=== PATIENT | male | born 1940 | race Caucasian/White ===

== ENCOUNTER 2017-10-31 14:00 | Inpatient (IN) | payer OTHER, MEDICARE, MEDICAID ==
[~2017-10-31] VITALS: Ht 182.9 cm; Wt 106.4 kg
[~2017-10-31 14:00] MED LIST: ALBU18HF2 INH; AMIO200T57 PO; AMMO1SOL2 TOP; AMOX500C2 PO; ASPI-1265 PO; ATOR40TA PO; CARB15DR2 EACHEYE; CARV-50 PO; CEPH-571 PO; CHOL400T32 PO; DEXT15DR7 EACHEYE; DOCU-148 PO; DORZ10DR7 EACHEYE; FURO-150 PO; HYDR-565 PO; HYDR28CR14 TOP; KEN0.1O TP; LISI10TA4 PO; METH1TAB32 PO; MINE120C3 TOP; MORP100C17 PO; MORP60CA18 PO; NITR1PAT25 TD; OMEG-166 PO; OXYB15TA PO; PANT-47 PO; POLY17PO10 PO; RIVA20TA PO; SENN-161 PO; SIME80TA5 PO; VITC500T PO; XAL0.005OS EACHEYE; ZOLP10TA5 PO
[2017-10-31 15:14] LABS: INR 1.4 INR; PARTIAL THROMBOPLASTIN TIME 32 SECONDS (22-32); PROTHROMBIN TIME 14.8 SECONDS (9.0-12.0)
[2017-10-31 15:17] LABS: BASOPHILS % (AUTO) 0.4 % (0-1); EOSINOPHILS # (AUTO) 0.4 X10'3 (0-0.9); EOSINOPHILS % (AUTO) 5.5 % (0-6); HEMATOCRIT 29.7 % (42.0-52.0); HEMOGLOBIN 9.1 g/dl (14.0-17.9); LYMPHOCYTES # (AUTO) 1.3 X10'3 (1.1-4.8); MEAN CORPUSCULAR HEMOGLOBIN 21.2 PG (27.0-31.0); MEAN CORPUSCULAR HGB CONC 30.8 % (33.0-36.5); MEAN CORPUSCULAR VOLUME 69.1 FL (78-98); MEAN PLATELET VOLUME 8.2 FL (7.4-10.4); MONOCYTES # (AUTO) 0.8 X10'3 (0-0.9); MONOCYTES % (AUTO) 10.3 % (2-12); NEUTROPHILS # (AUTO) 5.3 X10'3 (1.8-7.7); NEUTROPHILS % (AUTO) 67.8 % (42-75); PLATELET COUNT 243 X10'3 (140-440); RED CELL DISTRIBUTION WIDTH 20.3 % (11.5-14.5); WHITE BLOOD COUNT 7.9 X10'3 (4.5-11.0)
[2017-10-31 15:23] LABS: ALANINE AMINOTRANSFERASE 45 U/L (12-78); ALBUMIN 2.7 G/DL (3.4-5.0); ALBUMIN/GLOBULIN RATIO 0.6 (1.1-1.5); ALKALINE PHOSPHATASE 86 IU/L (46-116); ANION GAP 5 (8-16); ASPARTATE AMINO TRANSFERASE 41 U/L (10-37); BILIRUBIN,TOTAL 0.9 MG/DL (0.1-1.0); BLOOD UREA NITROGEN 31 MG/DL (7-18); BUN/CREATININE RATIO 23.5 (5.4-32.0); CALCIUM 8.6 MG/DL (8.5-10.1); CHLORIDE 100 MMOL/L (99-107); CREATININE 1.32 MG/DL (0.60-1.10); GLUCOSE 95 MG/DL (70-104); POTASSIUM 4.1 MMOL/L (3.5-5.1); SODIUM 136 MMOL/L (135-145); TOTAL CARBON DIOXIDE 31.1 MMOL/L (24-32); TOTAL PROTEIN 7.6 G/DL (6.4-8.2); eGFR 53 ML/MIN
[2017-10-31 15:33] LABS: ACANTHOCYTES 2+; ANISOCYTOSIS 2+; HYPOCHROMASIA 2+; MICROCYTOSIS 2+; PLATELET ESTIMATE NORMAL; POLYCHROMASIA 2+
[2017-10-31] MEDS ORDERED: furosemide 10 MG/1 ML 10ml inj IV ONE (16:20)
[2017-10-31] MEDS ORDERED: non-formulary drug (Zolpidem Tartrate* (Ambien*) 1 TAB) PO PRN (17:20)
[2017-10-31] MEDS ORDERED: MINERAL OIL/PETROLATUM,WHITE CREAM 107 GM TUBE TP PRN (17:20)
[2017-10-31] MEDS ORDERED: GLYCERIN EACHEYE PRN (17:20)
[2017-10-31] MEDS ORDERED: simethicone 80mg chew tab PO PRN (17:20)
[2017-10-31] MEDS ORDERED: HYDROcodone/acetaminophen 10/325mg tab PO PRN (17:20)
[2017-10-31] MEDS ORDERED: non-formulary drug (Albuterol Sulfate (Ventolin Hfa) 2 PUFFS) INH PRN (17:20)
[2017-10-31] MEDS ORDERED: docusate sod 100mg capsule PO PRN (17:20)
[2017-10-31] MEDS ORDERED: CARBOXYMETHYLCELLULOS EACHEYE PRN (17:20)
[2017-10-31] MEDS ORDERED: ondansetron/PF 4mg/2ml inj IV PRN (17:35)
[2017-10-31] MEDS ORDERED: mag hydrox/Alum hydrox/simeth 30ml oral suspension PO PRN (17:35)
[2017-10-31] MEDS ORDERED: acetaminophen 325mg tablet PO PRN (17:35)
[2017-10-31] MEDS ORDERED: potassium Cl 40MEQ/NS 500ml 500 ML IV PRN ×2 (17:35)
[2017-10-31] MEDS ORDERED: magnesium hydroxide 30ml (MOM) UD suspension PO PRN (17:35)
[2017-10-31] MEDS ORDERED: HYDROcodone/acetaminophen 5mg/325mg tablet PO PRN (17:35)
[2017-10-31] MEDS ORDERED: polyvinyl alcohol ophthalmic drops 15ml bottle EACHEYE PRN (18:00)
[2017-10-31] MEDS ORDERED: albuterol 2.5 MG/3 ML nebule NEB PRN (18:00)
[2017-10-31 18:11] LABS: ALANINE AMINOTRANSFERASE 50 U/L (12-78); ALBUMIN 2.7 G/DL (3.4-5.0); ALBUMIN/GLOBULIN RATIO 0.6 (1.1-1.5); ALKALINE PHOSPHATASE 86 IU/L (46-116); ASPARTATE AMINO TRANSFERASE 37 U/L (10-37); BILIRUBIN,DIRECT 0.3 MG/DL (0-0.3); BILIRUBIN,TOTAL 0.9 MG/DL (0.1-1.0); TOTAL PROTEIN 7.5 G/DL (6.4-8.2)
[2017-10-31] MEDS ORDERED: CARV3.12 PO (18:14)
[2017-10-31 19:55] VITALS: BP 154/82
[2017-10-31] MEDS ORDERED: furosemide 10 MG/1 ML 10ml inj IV SCH (20:00)
[2017-10-31] MEDS ORDERED: AMMONIUM LACTATE TP SCH (20:00)
[2017-10-31] MEDS ORDERED: pantoprazole 40mg Tablet.DR PO SCH (20:00)
[2017-10-31] MEDS ORDERED: carVEDilol 3.125mg tablet PO SCH (20:00)
[2017-10-31] MEDS ORDERED: furosemide 20MG tablet PO SCH (20:00)
[2017-10-31] MEDS ORDERED: methenamine hippurate 1gm tablet PO SCH (20:00)
[2017-10-31] MEDS ORDERED: dorzolamide 2% ophthalmic drops 10ml EACHEYE SCH (20:00)
[2017-10-31] MEDS ORDERED: hydrocortisone 1% cream 28gm TP SCH (20:00)
[2017-10-31] MEDS ORDERED: AMMONIUM LACTATE TOP SCH (20:00)
[2017-10-31] MEDS ORDERED: oxybutynin 5mg tablet PO SCH (20:00)
[2017-10-31] MEDS ORDERED: latanoprost 0.005% 2.5ml ophthalmic drops EACHEYE SCH (21:00)
[2017-10-31] MEDS ORDERED: OMEGA-3/DHA/EPA/FISH OIL 1 EACH CAPSULE.DR PO SCH (21:00)
[2017-10-31 21:15] VITALS: BP 139/71
[2017-10-31] MEDS ORDERED: diltiazem 5mg/ml 5ml inj. IV ONE ×2 (23:15→23:16)
[2017-10-31 23:35] LABS: ABG BASE EXCESS -0.6 mmol/L (-2.0-3.0); ABG HCO3 25.2 mmol/L (22.0-26.0); ABG PCO2 (T) 49.5 mmHg (35.0-48.0); ABG PO2 (T) 74.3 mmHg (83-108); FLOW 4 L/min; FMetHb 0.2 % (0.3-1.12); FO2Hb 90.8 % (94-100); PATIENT TEMPERATURE 38.5; TOTAL HEMOGLOBIN 10.2 G/dl (14.0-18.0)
[2017-10-31 23:46] LABS: BASOPHILS % (AUTO) 0 % (0-1); EOSINOPHILS % (AUTO) 0.5 % (0-6); HEMATOCRIT 30.6 % (42.0-52.0); HEMOGLOBIN 9.4 g/dl (14.0-17.9); LYMPHOCYTES # (AUTO) 0.2 X10'3 (1.1-4.8); MEAN CORPUSCULAR HEMOGLOBIN 21.1 PG (27.0-31.0); MEAN CORPUSCULAR HGB CONC 30.7 % (33.0-36.5); MEAN CORPUSCULAR VOLUME 68.6 FL (78-98); MEAN PLATELET VOLUME 7.3 FL (7.4-10.4); MONOCYTES % (AUTO) 0.1 % (2-12); NEUTROPHILS # (AUTO) 8.5 X10'3 (1.8-7.7); NEUTROPHILS % (AUTO) 97.4 % (42-75); PLATELET COUNT 258 X10'3 (140-440); RED BLOOD COUNT 4.47 X10'6 (4.70-6.10); RED CELL DISTRIBUTION WIDTH 20.3 % (11.5-14.5); WHITE BLOOD COUNT 8.8 X10'3 (4.5-11.0)
[2017-10-31 23:59] LABS: ALANINE AMINOTRANSFERASE 46 U/L (12-78); ALBUMIN 2.6 G/DL (3.4-5.0); ALBUMIN/GLOBULIN RATIO 0.6 (1.1-1.5); ALKALINE PHOSPHATASE 117 IU/L (46-116); ANION GAP 8 (8-16); ASPARTATE AMINO TRANSFERASE 44 U/L (10-37); BILIRUBIN,TOTAL 1.4 MG/DL (0.1-1.0); BLOOD UREA NITROGEN 34 MG/DL (7-18); BUN/CREATININE RATIO 20.1 (5.4-32.0); CALCIUM 8.3 MG/DL (8.5-10.1); CHLORIDE 101 MMOL/L (99-107); CREATININE 1.69 MG/DL (0.60-1.10); GLUCOSE 63 MG/DL (70-104); POTASSIUM 3.7 MMOL/L (3.5-5.1); SODIUM 138 MMOL/L (135-145); TOTAL CARBON DIOXIDE 28.8 MMOL/L (24-32); TOTAL PROTEIN 7.3 G/DL (6.4-8.2); eGFR 40 ML/MIN
[2017-11-01] MEDS ORDERED: piperacillin-tazo 2.25gm/50ml 50 ML IV SCH
[2017-11-01] MEDS ORDERED: morphine ER 30mg tablet PO SCH
[2017-11-01 00:10] VITALS: BP 114/94
[2017-11-01 00:11] LABS: CLARITY,URINE Cloudy (Clear); COLOR,URINE Yellow (Yellow); GLUCOSE, URINE Negative (Neg); KETONES,URINE Negative (Neg); LEUKOCYTE ESTERASE ,URINE Moderate (Neg); NITRITES, URINE Negative (Neg); OCCULT BLOOD,URINE Large (Neg); PROTEIN,URINE 100 mg/dl (Neg)
[2017-11-01] MEDS ORDERED: piperacillin-tazo 2.25gm/50ml 50 ML IV ONE (00:23)
[2017-11-01 00:46] LABS: UA COLLECTION TYPE FOLEY CATH
[2017-11-01] MEDS ORDERED: vancomycin/NS 1 GM ADD-VANTAGE 250 ML IV SCH (01:00)
[2017-11-01 01:14] LABS: RBC,URINE 50-100 /HPF (0-2)
[2017-11-01 01:15] LABS: BACTERIA,URINE 2+ /HPF (Neg)
[2017-11-01 01:16] LABS: MUCUS STRANDS NONE SEEN /LPF (Neg); SQUAMOUS EPITHELIAL CELL,UR FEW /LPF (FEW)
[2017-11-01] MEDS ORDERED: acetaminophen 120MG suppository, rectal RC PRN (01:50)
[2017-11-01] MEDS ORDERED: acetaminophen 650mg rectal suppository RC PRN (02:20)
[2017-11-01 03:00] VITALS: BP 80/44
[2017-11-01 03:05] VITALS: BP 72/40
[2017-11-01 03:10] VITALS: BP 66/40
[2017-11-01 03:36] LABS: BASOPHILS % (AUTO) 0 % (0-1); EOSINOPHILS % (AUTO) 0.1 % (0-6); HEMATOCRIT 30.8 % (42.0-52.0); HEMOGLOBIN 9.4 g/dl (14.0-17.9); LYMPHOCYTES # (AUTO) 0.6 X10'3 (1.1-4.8); LYMPHOCYTES % (AUTO) 2.1 % (21-51); MEAN CORPUSCULAR HEMOGLOBIN 21.1 PG (27.0-31.0); MEAN CORPUSCULAR HGB CONC 30.6 % (33.0-36.5); MEAN CORPUSCULAR VOLUME 69.1 FL (78-98); MEAN PLATELET VOLUME 8.3 FL (7.4-10.4); MONOCYTES # (AUTO) 0.2 X10'3 (0-0.9); MONOCYTES % (AUTO) 0.6 % (2-12); NEUTROPHILS # (AUTO) 28.3 X10'3 (1.8-7.7); NEUTROPHILS % (AUTO) 97.2 % (42-75); PLATELET COUNT 227 X10'3 (140-440); RED BLOOD COUNT 4.45 X10'6 (4.70-6.10); RED CELL DISTRIBUTION WIDTH 19.6 % (11.5-14.5)
[2017-11-01 03:49] LABS: WHITE BLOOD COUNT 29.1 X10'3 (4.5-11.0)
[2017-11-01 03:54] LABS: ALANINE AMINOTRANSFERASE 106 U/L (12-78); ALBUMIN 2.3 G/DL (3.4-5.0); ALBUMIN/GLOBULIN RATIO 0.5 (1.1-1.5); ALKALINE PHOSPHATASE 117 IU/L (46-116); ANION GAP 14 (8-16); ASPARTATE AMINO TRANSFERASE 157 U/L (10-37); BILIRUBIN,TOTAL 1.9 MG/DL (0.1-1.0); CALCIUM 8.3 MG/DL (8.5-10.1); CHLORIDE 100 MMOL/L (99-107); CHOL/HDL RATIO 2.4 (0.00-4.99); CHOLESTEROL 61 MG/DL (0-200); CREATININE 2.22 MG/DL (0.60-1.10); HDL CHOLESTEROL 25 MG/DL (35-60); LDL CHOLESTEROL 40 MG/DL (50-100); POTASSIUM 4.8 MMOL/L (3.5-5.1); SODIUM 136 MMOL/L (135-145); TOTAL CARBON DIOXIDE 22.1 MMOL/L (24-32); TOTAL PROTEIN 6.8 G/DL (6.4-8.2); TRIGLYCERIDES 54 MG/DL (20-135); eGFR 29 ML/MIN
[2017-11-01 04:12] LABS: BLOOD UREA NITROGEN 36 MG/DL (7-18); BUN/CREATININE RATIO 16.2 (5.4-32.0)
[2017-11-01 04:14] LABS: GLUCOSE 34 MG/DL (70-104)
[2017-11-01] MEDS ORDERED: morphine 10mg/0.5ml (conc. morphine) oral syringe PO PRN (04:40)
[2017-11-01 07:30] LABS: TOTAL CELLS COUNTED 100
[2017-11-01 07:31] LABS: ACANTHOCYTES 1+; ANISOCYTOSIS 2+; HYPOCHROMASIA 2+; MICROCYTOSIS 2+; PLATELET ESTIMATE NORMAL; POLYCHROMASIA 1+; TOXIC GRANULATION 2+; TOXIC VACUOLATION 1+
[2017-11-01] MEDS ORDERED: nitroGLYCERIN 0.1mg/hour patch TD SCH (08:00)
[2017-11-01] MEDS ORDERED: polyvinyl alcohol ophthalmic drops 15ml bottle EACHEYE SCH (08:00)
[2017-11-01] MEDS ORDERED: aspirin 81mg tab.chew PO SCH (08:00)
[2017-11-01] MEDS ORDERED: polyethylene glycol 3350 17gm powd pack PO SCH (08:00)
[2017-11-01] MEDS ORDERED: MORPHINE SULFATE PO SCH (08:00)
[2017-11-01] MEDS ORDERED: amiodarone 200mg tablet PO SCH (08:00)
[2017-11-01] MEDS ORDERED: rivaroxaban 20mg tablet PO SCH (08:00)
[2017-11-01] MEDS ORDERED: K and/or MAG REPLACEMENT MC SCH (08:00)
[2017-11-01] MEDS ORDERED: lisinopril 5mg tablet PO SCH (08:00)
[2017-11-01] MEDS ORDERED: OXYBUTYNIN CHLORIDE 5 MG PO SCH (08:00)
[2017-11-01] MEDS ORDERED: cholecalciferol (vitamin D) 400 unit tablet PO SCH (08:00)
[2017-11-01] MEDS ORDERED: triamcinolone acet 0.1% cream 15gm TP SCH (08:00)
[2017-11-01] MEDS ORDERED: non-formulary drug (Atorvastatin Calcium* (Lipitor*) 1 TAB) PO SCH (08:00)
[2017-11-01] MEDS ORDERED: ascorbic acid 500mg tablet PO SCH (08:00)
[2017-11-01] MEDS ORDERED: atorvastatin 20mg tablet PO SCH (08:00)
[2017-11-01] MEDS ORDERED: sennosides 8.6mg tablet PO SCH (08:00)
[2017-11-05] MEDS ORDERED: VANCOMYCIN LEVEL IV NR (03:30)
== END 2017-11-01 06:30 | disposition expired | DRG 871 ==
LOC: ER 14:01 → ED HOLD 17:00 → EDBEDREQ 18:58 → SUR 3N 20:06 → PCU 3S 23:55
PROVIDERS: ADMIT Family Medicine; ATTEND Family Medicine
PROC: 5A09357 Assistance with Respiratory Ventilation, Less than 24 Consecutive Hours, Continuous Positive Airway Pressure (ICD-10-PCS; principal; 2017-11-01)
DX: A41.9 Sepsis, unspecified organism (principal); I50.33 Acute on chronic diastolic (congestive) heart failure; G35 Multiple sclerosis; I48.91 Unspecified atrial fibrillation; I25.10 Atherosclerotic heart disease of native coronary artery without angina pectoris; E78.5 Hyperlipidemia, unspecified; N32.81 Overactive bladder; K59.00 Constipation, unspecified; I11.0 Hypertensive heart disease with heart failure; Z51.5 Encounter for palliative care; Z66 Do not resuscitate; Z95.5 Presence of coronary angioplasty implant and graft; Z99.3 Dependence on wheelchair; Z90.79 Acquired absence of other genital organ(s); Z79.01 Long term (current) use of anticoagulants; Z79.82 Long term (current) use of aspirin; Z79.899 Other long term (current) drug therapy; Z88.1 Allergy status to other antibiotic agents; Z80.42 Family history of malignant neoplasm of prostate; Z84.1 Family history of disorders of kidney and ureter
CPT/HCPCS: 36415; 36600; 71010; 80053; 80061; 80076; 81001; 81003; 82803; 82948; 83036; 83605; 83880; 84439; 84443; 84484; 85018; 85025; 85610; 85730; 87040; 87070; 87077; 87088; 87186; 94660; 94760; 99285; A4315; J1940; J2270; J2543; J3370; J3490; J7030